=== PATIENT | female | born 1955 | race Caucasian/White ===

== ENCOUNTER 2017-12-03 21:53 | Emergency (ER) | payer BC, OTHER ==
[~2017-12-03 21:53] MED LIST: IBU800 PO; PER PO
[2017-12-03] MEDS ORDERED: OMEP-218 PO (22:03)
[2017-12-03] MEDS ORDERED: FLUT16SP19 NS (22:04)
--- NOTE | 2017-12-03 22:05 | ER Report ---
History and Physical Time Seen By MD: 21:57 HPI/ROS CHIEF COMPLAINT: Right eye pain and discharge HISTORY OF PRESENT ILLNESS: 62-year-old female presents complaining of right eye pain. She had something in her eye earlier today while fishing. Her eyes swelled shut and mattering with severe eye pain. Patient denies contact lenses. He wears glasses. Patient notes no recent infection, fever, chills or sinus infection. REVIEW OF SYSTEMS: Respiratory: No cough, no dyspnea. Cardiovascular: No chest pain, no palpitations. Gastrointestinal: No vomiting, no abdominal pain. Musculoskeletal: No back pain. Allergies: Coded Allergies: pentazocine (Verified Allergy, Intermediate, "KNOCKS ME OUT, HIVES, RASH" , 12/03/17) meperidine (Verified Adverse Reaction, Unknown, NAUSEA, 12/03/17) Home Meds Reported Medications Fluticasone Prop 50 Mcg Ns (FLONASE 50 MCG NS) 16 Gm [place].susp, 1 SPRAY NS BID , BOT 12/03/17 Omeprazole Magnesium (PRILOSEC OTC) 20 Mg Tablet.dr, 1 TAB PO QDAY, TAB 12/03/17 Discontinued Reported Medications Ibuprofen (Motrin) 800 Mg Tab, 800 MG PO Q8H, 0 Refills 12/11/09 Oxycodone/Acetaminophen (OXYCODONE/ACETAMINOPHEN 5MG/325 MG) 5 Mg/325 Mg Tab, 1 - 2 TAB PO Q4H, 0 Refills 12/11/09 Reviewed Nurses Notes: Yes Old Medical Records Reviewed: Yes Hx Substance Use Disorder: No Constitutional Vital Sign - Last 24 Hours 12/03/17 12/03/17 12/03/17 12/03/17 21:57 21:58 22:00 22:08 Temp 98.3 Pulse 85 89 Resp 12 B/P (MAP) 162/88 (112) 162/88 160/93 (115) Pulse Ox 93 89 O2 Delivery Room Air 12/03/17 22:30 B/P (MAP) 150/80 (103) Physical Exam General Appearance: The patient is alert, has no immediate need for airway protection and no current signs of toxicity. Moderate distress HEENT: Pupils equal and round no injection. Gross injection and mattering with subconjunctival hemorrhage to the right eye, forcing's instilled. There is uptake at the 6 o'clock position inferior aspect of the iris consistent with chemical exposure or conjunctivitis TMs normal, oropharynx no redness or exudate, mucous. Membranes are moist Respiratory: Chest is non tender, lungs are clear to auscultation. Cardiac: regular rate and rhythm Gastrointestinal: Abdomen is soft and non tender, no masses, bowel sounds normal. Musculoskeletal: Neck: Neck is supple and non tender. No lymphadenopathy Extremities have full range of motion and are non tender. Skin: No rashes or lesions. DIFFERENTIAL DIAGNOSIS: After history and physical exam differential diagnosis was considered for conjunctivitis, foreign body, corneal abrasions, chemical conjunctivitis, chemical wallace to I Medical Decision Making ED Course/Re-evaluation ED Course Patient was admitted to an examination room. H&P was done. The pharyngeal diagnoses was considered. On clinical examination, patient appears to have chemical conjunctivitis. She'll be treated with Tobrex drops. She's given proparacaine drops and advised to use them cautiously and not to rub her eye. Patient advised to follow-up with eye doctor if unimproved in 2-3 days. Decision to Disposition Date: Dec 03, 2017 Decision to Disposition Time: 22:34 Depart Departure Latest Vital Signs Vital Signs Date Time Temp Pulse Resp B/P (MAP) Pulse Ox O2 Delivery O2 Flow Rate FiO2 12/03/17 22:30 150/80 (103) 12/03/17 22:08 89 89 12/03/17 21:58 98.3 12 Room Air Impression: Primary Impression: Conjunctivitis Condition: Improved Disposition: HOME OR SELF-CARE Referrals: DELIA LEWIS MD Patient Instructions: Conjunctivitis (ED) Additional Instructions: Use Tobrex drops 1 drop 3 times a day Use proparacaine drops sparingly for pain relief. Do not rub your eye since she may injure it while it's numb Use Tylenol and ibuprofen for additional pain relief Use cool compresses such as a wet washcloth on the eye Follow-up with eye doctor if unimproved in 2-3 days, Dr. Lewis Problem Qualifiers Primary Impression: Conjunctivitis Conjunctivitis type: acute Acute conjunctivitis type: unspecified Laterality: right Qualified Codes: H10.31 - Unspecified acute conjunctivitis , right eye JEFFREY HOFFMAN DO Dec 03, 2017 22:05
[2017-12-03] MEDS ORDERED: TOBRAMYCIN/DEX OP SUSP 2.5 ML OD ONE (22:15)
[2017-12-03] MEDS ORDERED: FLUORESCEIN SOD 1 MG 1 EA STRP OD ONE (22:15)
[2017-12-03] MEDS ORDERED: PROPARACAINE 0.5% OP 15ML BTL OD ONE (22:15)
[2017-12-03 22:30] VITALS: BP 150/80
== END 2017-12-03 22:46 | disposition home or self-care (01) ==
LOC: ER 22:08
DX: H10.31 Unspecified acute conjunctivitis, right eye (principal)
CPT/HCPCS: 99281